=== PATIENT | male | born 1955 | race Hispanic/Latino ===

== ENCOUNTER 2022-12-17 07:18 | Day surgery (SDC) | payer MEDICARE ==
[~2022-12-17] VITALS: Ht 157.5 cm; Wt 81.6 kg
[2022-12-17] VITALS (17 sets, daily range): BP systolic 109–142; BP diastolic 61–87; PULSE 68–93; RESP 10–19
[2022-12-17] MEDS ORDERED: CEFAZOLIN SODIUM 2 GM VIAL ONE (07:59)
[2022-12-17] MEDS ORDERED: LACTATED RINGERS 1000ML 1,000 ML IV ONE (07:59)
[2022-12-17] MEDS ORDERED: MIDAZOLAM HCL 1 MG/ML 2ML VIAL ONE (11:54)
[2022-12-17] MEDS ORDERED: FENTANYL CITRATE PF 50 MCG/1 ML 2ML VIAL ONE (11:55)
[2022-12-17] MEDS ORDERED: GLYCOPYRROLATE 1 MG/5 ML SYRINGE ONE (11:56)
[2022-12-17] MEDS ORDERED: DEXAMETHASONE SOD PHOSPHATE 10MG/ML 1ML VIAL ONE (11:59)
[2022-12-17] MEDS ORDERED: ONDANSETRON 4MG INJ ONE (11:59)
[2022-12-17] MEDS ORDERED: ROPIVACAINE 0.5% 5MG/ML 30ML IJ ONE (12:28)
[2022-12-17] MEDS ORDERED: FENTANYL CITRATE PF 50 MCG/1 ML 5ML AMP IV ONE (13:16)
[2022-12-17] MEDS ORDERED: BUPIVACAINE/PF 0.25% 30ML VIAL IJ ONE (13:43)
[2022-12-17] MEDS ORDERED: ACETAMINOPHEN WITH CODEINE 1 TAB TAB ONE ×2 (17:21→17:22)
== END 2022-12-17 17:27 | disposition home or self-care (01) ==
LOC: DAH 07:18
PROVIDERS: ATTEND Surgery
DX: K40.20 Bilateral inguinal hernia, without obstruction or gangrene, not specified as recurrent (principal); K42.0 Umbilical hernia with obstruction, without gangrene
CPT/HCPCS: 49650; 64488; 93005; 49594; A4663; J7030; A4344; A4215 ×2; C1781 ×3; J7120; J3010 ×2; J3490; J1100; J0665; J2250; J2405; J2795; J0690; A4223; A4222; A4221; A4600; G0168